=== PATIENT | male | born 1970 | race Caucasian/White ===

== ENCOUNTER → 2018-07-13 11:32 | Outpatient (CLI) | payer OTHER, SELFPAY ==
--- NOTE | 2018-07-13 11:35 | DI.RAD.S_ITS ---
PROCEDURE: XR ANKLE RT MIN 3V INDICATIONS: Right ankle pain after fall. TECHNIQUE: 3 views of the ankle were acquired. COMPARISON: None. FINDINGS: Bones: No displaced fracture is identified. There is a cortical irregularity at the articulation between the medial malleolus and the dorsal lateral talus. Ankle mortise is anatomically aligned. Soft tissues: No tibiotalar joint effusion. IMPRESSION: Cortical irregularity at the articulation between the right medial malleolus and talus, which may represent an age-indeterminate fracture. The lack of significant soft tissue swelling overlying the medial malleolus suggests that this may represent a chronic deformity, but correlation with pain and tenderness is recommended to exclude an acute fracture. Consider followup radiographs in 7-10 days if there is continued clinical concern. Dictated by: Jed Issa M.D. on 07/13/2018 at 12:15 Approved by: Jed Issa M.D. on 07/13/2018 at 12:40
== END ==
PROVIDERS: PCP Family Medicine; Visit Provider Physician Assistant
DX: M25.571 Pain in right ankle and joints of right foot (principal)
CPT/HCPCS: 73610

== ENCOUNTER → 2021-05-01 14:33 | Outpatient (CLI) | payer OTHER, SELFPAY ==
[2021-05-01] MEDS: COVID-19 VACC #3, MRNA(MOD) 50 MCG/0.25 ML VIAL IM (14:36)
== END ==
PROVIDERS: PCP Family Medicine; Visit Provider Internal Medicine
DX: Z23 Encounter for immunization (principal)
CPT/HCPCS: 0013A; 91301